=== PATIENT | female | born 1995 | race Caucasian/White ===

== ENCOUNTER 2016-07-11 21:07 | Emergency (ER) | payer OTHER ==
[~2016-07-11] VITALS: Ht 165.1 cm; Wt 65.0 kg
[2016-07-11 21:09] VITALS: BP 126/88; PULSE 122; RESP 20; TEMP 98; O2SAT 96
[2016-07-12] MEDS ORDERED: SODIUM CHLOR 0.9% 1000 ML INJ 1,000 ML IV ONE (00:02)
[2016-07-12] MEDS ORDERED: PROCHLORPERAZINE INJ 10 MG/2 ML VIAL IVP ONE (00:15)
[2016-07-12] MEDS ORDERED: SODIUM CHLORIDE 0.9% FLUSH 10 ML FLUSH IVF PRN (00:15)
[2016-07-12] MEDS ORDERED: diphenhydrAMINE HCL 50 MG/ML VIAL IVP ONE (00:15)
[2016-07-12] MEDS ORDERED: ACETAMINOPHEN 325 MG TAB PO ONE (00:15)
--- NOTE | 2016-07-12 01:14 | PD ---
HPI Chief Complaint: Headache Time Seen by Provider: 23:40 Travel History International Travel<30 days: No Contact w/Intl Traveler<30days: No Traveled to known affect area: No History of Present Illness HPI The patient's 21 years old. She has had a bifrontal headache since this morning. It is gradually worsening. She saw an urgent care clinic and received IM Toradol. Pain did not improve and so she came here. She reports a history of migraines. This is the worst migraine she has had. She also reports neck soreness. She's had no fever. She reports nausea and vomiting. She denies drugs alcohol and tobacco. Patient lives alone. She is a student at [employer]. [facility] Past Medical History ADHD: Yes Anxiety: Yes Depression: Yes Thyroid Disease: Yes (HASIMOTOS ) ?: Not LMP: 06/19/2016 Past Surgical History Other Surgery: Yes (UMBILICAL HERNIA, ) Social History Alcohol Use: No Tobacco Use: No Substance Use: No Allergies-Medications (Allergen,Severity, Reaction): Coded Allergies: Imitrex (Verified Allergy, Severe, Anaphylaxis, 07/11/16) Keflex (Verified Allergy, Intermediate, 07/11/16) buring mouth and throat and increased thirst Reported Meds & Prescriptions Reported Meds & Active Scripts Active Phenergan (Promethazine HCl) 25 Mg Tab 25 Mg PO Q6H PRN Review of Systems Except as stated in HPI: all other systems reviewed are Neg General / Constitutional: No: Fever Neurologic: Positive: Headache Physical Exam Narrative GENERAL: 21 Female pleasant well-nourished well-developed SKIN: Warm and dry. HEAD: Atraumatic. Normocephalic. EYES: Pupils equal and round. No scleral icterus. No injection or drainage. Extraocular muscles intact. Gaze conjugate. ENT: No nasal bleeding or discharge. Mucous membranes pink and moist. NECK: Trachea midline. No JVD. Supple. Range of motion is normal. CARDIOVASCULAR: Regular rate and rhythm. RESPIRATORY: No accessory muscle use. Clear to auscultation. Breath sounds equal bilaterally. GASTROINTESTINAL: Abdomen soft, non-tender, nondistended. Hepatic and splenic margins not palpable. MUSCULOSKELETAL: Extremities without clubbing, cyanosis, or edema. No obvious deformities. NEUROLOGICAL: Awake and alert. No obvious cranial nerve deficits. Motor grossly within normal limits. Five out of 5 muscle strength in the arms and legs. Normal speech. PSYCHIATRIC: Appropriate mood and affect; insight and judgment normal. Data Data Last Documented VS Vital Signs Date Time Temp Pulse Resp B/P Pulse Ox O2 Delivery O2 Flow Rate FiO2 07/12/16 01:33 99 07/11/16 21:09 98.0 122 20 126/88 VS reviewed Orders Ecg Monitoring (07/12/16 00:02) Iv Access Insert/Monitor (07/12/16 00:02) Oximetry (07/12/16 00:02) Sodium Chloride 0.9% Flush (Ns Flush) (07/12/16 00:15) Acetaminophen (Tylenol) (07/12/16 00:15) Prochlorperazine Inj (Compazine Inj) (07/12/16 00:15) Diphenhydramine Inj (Benadryl Inj) (07/12/16 00:15) Sodium Chlor 0.9% 1000 Ml Inj (Ns 1000 M (07/12/16 00:02) MDM Medical Decision Making Medical Screen Exam Complete: Yes Emergency Medical Condition: Yes Differential Diagnosis Migraine, SAH, aneurysm, meningitis, SCT, mass Narrative Course Patient reports resolution of headache and just prior to departure. Compazine benadryl tylenol 1L NS. She reports feeling much better. The neck pain is quite concerning however I do not believe the patient has meningitis. She had a normal range of motion of her neck and had laid in various positions comfortably during her ER stay. She had no fever and repeat pulse 80 prior to DC. REturn precautions discussed. Phenergan script. Diagnosis Primary Impression: Migraine Qualified Code: G43.919 - Intractable migraine without status migrainosus, unspecified migraine type Additional Instructions: You have a choice when it comes to health care, and we are glad that you chose [facility]. Hopefully, we have met your expectations on today's visit. You are welcome to return to [facility] at any time, as we are committed to meeting the health care needs of our community. Med/Other Pt SpecificInfo: Prescription(s) given Scripts Promethazine (Phenergan)25 Mg Tab25 Mg PO Q6H PRN (MIGRAINE HEADACHE) #10 TAB Ref 0 Prov:Pedro Luis Encarnacion MD 07/12/16 Disposition: 01 DISCHARGE HOME Condition: Stable Pedro Luis Encarnacion MD Jul 12, 2016 01:14
[2016-07-12] MEDS ORDERED: PROM25TA5 PO (01:27)
[2016-07-12 01:33] VITALS: O2SAT 99
== END 2016-07-12 02:10 | disposition home or self-care (01) ==
LOC: EDSEX → NEPE 21:07
DX: G43.919 Migraine, unspecified, intractable, without status migrainosus (principal)
CPT/HCPCS: 96374; 96375; 99283; J0780; J1200; J7030

== ENCOUNTER 2016-09-24 17:18 | Emergency (ER) | payer OTHER ==
[~2016-09-24] VITALS: Ht 165.1 cm; Wt 65.0 kg
[~2016-09-24 17:18] MED LIST: ADDE20 PO; ALPR.5 PO; BEYATAB PO; LEVO.05 PO; LEXA20TA PO; LINA145C PO; PROM25TA5 PO; ZOFR4TAB PO
[2016-09-24 17:19] VITALS: BP 137/73; PULSE 116; RESP 28; TEMP 98.3; O2SAT 96
--- NOTE | 2016-09-24 17:31 | PD ---
Physical Exam Time Seen by Provider: 17:27 Narrative 21yo F c/o migraine [facility] started last night. Hx of migraines. +N w/o vomiting. Also c/o only seeing black and white in Left eye. Saw chiropractic today. Symptoms worsened after taking methylprednisone and meloxicam she was given at [facility] yesterday. Patient seen in triage. VS reviewed. Awaiting bed placement. Data Data Last Documented VS Vital Signs Date Time Temp Pulse Resp B/P Pulse Ox O2 Delivery O2 Flow Rate FiO2 09/24/16 17:19 98.3 116 28 137/73 96 Room Air MDM Supervised Visit with ELIZA: Tameka Leon Sep 24, 2016 17:31
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
[2016-09-24] MEDS ORDERED: SODIUM CHLOR 0.9% 1000 ML INJ 1,000 ML IV ONE (18:15)
[2016-09-24] MEDS ORDERED: KETOROLAC TROMETHAMINE 30 MG/ML (IVP) VIAL IV PUSH ONE (18:15)
[2016-09-24] MEDS ORDERED: PROCHLORPERAZINE INJ 10 MG/2 ML VIAL IV PUSH ONE (18:15)
[2016-09-24 19:16] LABS: AUTOMATED NEUTROPHIL # 9.7 TH/MM3 (1.8-7.7); BASOPHIL % 0.4 % (0.0-2.0); EOSINOPHIL % 0.2 % (0.0-4.0); HEMO FLAGS DIFF FINAL; LYMPHOCYTE # 1.5 TH/MM3 (1.0-4.8); MEAN CELL VOLUME 85.8 FL (80.0-100.0); MEAN CORPUSCULAR HEMOGLOBIN 28.4 PG (27.0-34.0); MEAN CORPUSCULAR HGB CONC 33.1 % (32.0-36.0); MONO % 2.7 % (0.0-8.0); NEUT % 83.7 % (16.0-70.0); PLATELET COUNT 271 TH/MM3 (150-450); RED BLOOD COUNT 4.55 MIL/MM3 (4.00-5.30); RED CELL DISTRIBUTION WIDTH 12.8 % (11.6-17.2); WHITE BLOOD COUNT 11.6 TH/MM3 (4.0-11.0)
[2016-09-24 19:23] LABS: BACTERIA, URINE RARE /hpf; BLOOD, URINE NEG (NEG); COMMENT (UR) CULT NOT INDICATED; CULTURE IF INDICATED CULT NOT INDICATED; GLUCOSE,URINE NEG (NEG); KETONE, URINE NEG (NEG); NITRITE,URINE NEG (NEG); SQUAMOUS EPITHELIAL CELL URINE <1 /hpf (0-5); URINE COLOR LIGHT-YELLOW (YELLW/STRAW)
[2016-09-24 19:25] LABS: AMPHETAMINE, URINE NEG (NEG); BARBITURATES, URINE NEG (NEG); COCAINE, URINE NEG (NEG)
[2016-09-24 19:41] LABS: ANION GAP 6 MEQ/L (5-15); BICARBONATE 26.6 MEQ/L (21.0-32.0); BLOOD UREA NITROGEN 13 MG/DL (7-18); CHLORIDE 104 MEQ/L (98-107); GLOMERULAR FILTRATION RATE 102 ML/MIN (>89); POTASSIUM 3.9 MEQ/L (3.5-5.1); SODIUM (NA) 137 MEQ/L (136-145)
[2016-09-24 19:46] LABS: BETA HCG QUANT LESS THAN 1 MIU/ML (0-5)
== END 2016-09-24 19:58 | disposition home or self-care (01) ==
LOC: NEPD 17:18
DX: G43.401 Hemiplegic migraine, not intractable, with status migrainosus (principal); R00.0 Tachycardia, unspecified; F41.9 Anxiety disorder, unspecified; F32.9 Major depressive disorder, single episode, unspecified; E06.3 Autoimmune thyroiditis; Z79.899 Other long term (current) drug therapy
CPT/HCPCS: 80048; 80307; 81001; 84702; 85025; 96374; 96375; 99284; J0780; J1885; J7030

== ENCOUNTER 2017-04-30 21:39 | Inpatient (IN) | payer OTHER ==
[~2017-04-30] VITALS: Ht 167.6 cm; Wt 58.0 kg
[~2017-04-30 21:39] MED LIST changes: -ALPR.5 PO; -PROM25TA5 PO; -ZOFR4TAB PO
[2017-04-30 21:40] VITALS: BP 139/88; PULSE 88; RESP 16; TEMP 97.8; O2SAT 99
--- NOTE | 2017-04-30 21:52 | PD ---
HPI Chief Complaint: OD/ Ingestion Time Seen by Provider: 21:51 Travel History International Travel<30 days: No Contact w/Intl Traveler<30days: No Traveled to known affect area: No History of Present Illness HPI 22-year-old female came to the emergency room brought by her friend with history of overdosing on Xanax half an hour to 45 minutes prior to coming in. Patient says that she was feeling very anxious and that's why she took the pills. She denies doing it to kill herself. The patient and these are her pills. She took total of 12 each of 1 mg. No history of vomiting after the event. Patient is awake and answering questions appropriately although appears to be little bit groggy. Patient denies doing any alcohol or drugs with it. PFSH Past Medical History Narrative Medical List of her past medical, surgical, social and family history is reviewed from the nursing note. ADHD: Yes Anxiety: Yes Depression: Yes Diabetes: No Thyroid Disease: Yes (HASIMOTOS ) ?: Not Past Surgical History Other Surgery: Yes (UMBILICAL HERNIA, ) Social History Alcohol Use: No Tobacco Use: No Substance Use: No Allergies-Medications (Allergen,Severity, Reaction): Coded Allergies: sumatriptan (Unverified Allergy, Severe, Anaphylaxis, 04/30/17) cephalexin (Unverified Allergy, Intermediate, 04/30/17) buring mouth and throat and increased thirst topiramate (Unverified Allergy, Intermediate, hives, 04/30/17) prochlorperazine (Verified Allergy, Unknown, TWITCHING, CRAWLING OUT OF SKIN, 04/30/17) Comments List of her allergies reviewed from the nursing note. Reported Meds & Prescriptions Reported Meds & Active Scripts Active Adderall (Amphetamine-Dextroamphetamine) 20 Mg Tab 20 Mg PO DAILY PRN Avoid late evening doses. Space doses at least 4 to 6 hours if more than once/day dosing. Beyaz (Drospirenone-Ethinyl Estradiol-Levomefolate) 3-0.02-0.451 Mg Tab 1 Tab PO DAILY Synthroid (Levothyroxine Sodium) 50 Mcg Tab 50 Mcg PO DAILY Reported Maxalt (Rizatriptan Benzoate) 5 Mg Tab 1 Tab PO Q4HR PRN Zofran (Ondansetron HCl) 8 Mg Tab 8 Mg PO TID PRN Cymbalta (Duloxetine HCl) 30 Mg Capdr 30 Mg PO DAILY Narrative Medication List of her home medications reviewed from the nursing note. Review of Systems Except as stated in HPI: all other systems reviewed are Neg Physical Exam Narrative GENERAL: Awake, alert, no obvious distress SKIN: Focused skin assessment warm/dry. HEAD: Atraumatic. Normocephalic. EYES: Pupils equal and round. No scleral icterus. No injection or drainage. ENT: No nasal bleeding or discharge. Mucous membranes pink and moist. NECK: Trachea midline. No JVD. CARDIOVASCULAR: Regular rate and rhythm. No murmur appreciated. RESPIRATORY: No accessory muscle use. Clear to auscultation. Breath sounds equal bilaterally. GASTROINTESTINAL: Abdomen soft, non-tender, nondistended. Hepatic and splenic margins not palpable. MUSCULOSKELETAL: No obvious deformities. No clubbing. No cyanosis. No edema. NEUROLOGICAL: Awake and alert. No obvious cranial nerve deficits. Motor grossly within normal limits. Normal speech. PSYCHIATRIC: Appropriate mood and affect; insight and judgment normal. Data Data Last Documented VS Vital Signs Date Time Temp Pulse Resp B/P (MAP) Pulse Ox O2 Delivery O2 Flow Rate FiO2 05/01/17 06:24 98.6 70 16 102/56 (71) 98 Room Air Orders Orders Complete Blood Count With Diff (04/30/17 21:54) Comprehensive Metabolic Panel (04/30/17 21:54) Thyroid Stimulating Hormone (04/30/17 21:54) Electrocardiogram (04/30/17 21:54) Beta Hcg (Quant/Titer) (04/30/17 21:54) Psych Screen (04/30/17 21:54) Drug Screen, Random Urine (04/30/17 21:54) Alcohol (Ethanol) (04/30/17 21:54) Call Poison Control (04/30/17 21:54) Sodium Chlor 0.9% 1000 Ml Inj (Ns 1000 M (04/30/17 22:00) Ed Urine Pregnancytest Poc (05/01/17 00:21) Salicylates (Aspirin) (05/01/17 00:21) Tylenol (Acetaminophen) (05/01/17 00:21) Diet Regular Basic (05/01/17 Breakfast) Admit To Inpatient Psych (05/01/17 ) Code Status (05/01/17 09:36) Vital Signs (Adult) [id number] (05/01/17 09:36) Activity Oob Ad Zoe (05/01/17 09:36) Level Of Observation (Psych) (05/01/17 09:36) Lorazepam (Ativan) (05/01/17 09:45) Lorazepam Inj (Ativan Inj) (05/01/17 09:45) Lorazepam (Ativan) (05/01/17 09:45) Lorazepam Inj (Ativan Inj) (05/01/17 09:45) Acetaminophen (Tylenol) (05/01/17 09:45) Magnesium Hydroxide Liq (Milk Of Magnesi (05/01/17 09:45) Al-Mag Hy-Si 40-40-4 Mg/Ml Liq (Mag-Al P (05/01/17 09:45) Nicotine 21 Mg Patch.24 Hr (Habitrol 21 (05/02/17 09:00) Trazodone (Desyrel) (05/01/17 09:45) Basic Metabolic Panel (Bmp) (05/02/17 06:00) Thyroid Stimulating Hormone (05/02/17 06:00) Lipid Profile (05/02/17 06:00) Hemoglobin (Hgb) A1c (05/02/17 06:00) Consult Hospitalist (05/01/17 ) Remove Old Patch (05/02/17 09:00) Labs Laboratory Tests Test 04/30/17 22:40 04/30/17 22:51 Urine Opiates Screen NEG Urine Barbiturates Screen NEG Urine Amphetamines Screen NEG Urine Benzodiazepines Screen POS Urine Cocaine Screen NEG Urine Cannabinoids Screen NEG White Blood Count 7.6 TH/MM3 Red Blood Count 4.34 MIL/MM3 Hemoglobin 12.7 GM/DL Hematocrit 37.1 % Mean Corpuscular Volume 85.5 FL Mean Corpuscular Hemoglobin 29.3 PG Mean Corpuscular Hemoglobin Concent 34.3 % Red Cell Distribution Width 12.4 % Platelet Count 221 TH/MM3 Mean Platelet Volume 8.6 FL Neutrophils (%) (Auto) 56.1 % Lymphocytes (%) (Auto) 35.3 % Monocytes (%) (Auto) 7.3 % Eosinophils (%) (Auto) 0.5 % Basophils (%) (Auto) 0.8 % Neutrophils # (Auto) 4.3 TH/MM3 Lymphocytes # (Auto) 2.7 TH/MM3 Monocytes # (Auto) 0.6 TH/MM3 Eosinophils # (Auto) 0.0 TH/MM3 Basophils # (Auto) 0.1 TH/MM3 CBC Comment DIFF FINAL Differential Comment Blood Urea Nitrogen 9 MG/DL Creatinine 0.78 MG/DL Random Glucose 88 MG/DL Total Protein 7.1 GM/DL Albumin 3.6 GM/DL Calcium Level 9.1 MG/DL Alkaline Phosphatase 40 U/L Aspartate Amino Transf (AST/SGOT) 13 U/L Alanine Aminotransferase (ALT/SGPT) 8 U/L Total Bilirubin 0.6 MG/DL Sodium Level 138 MEQ/L Potassium Level 3.5 MEQ/L Chloride Level 102 MEQ/L Carbon Dioxide Level 28.6 MEQ/L Anion Gap 7 MEQ/L Estimat Glomerular Filtration Rate 91 ML/MIN Thyroid Stimulating Hormone 3rd Gen 2.640 uIU/ML Human Chorionic Gonadotropin, Quant LESS THAN 1 MIU/ML Salicylates Level LESS THAN 1.7 MG/DL Acetaminophen Level LESS THAN 2.0 MCG/ML Ethyl Alcohol Level LESS THAN 3 MG/DL MDM Medical Decision Making Medical Screen Exam Complete: Yes Emergency Medical Condition: Yes Medical Record Reviewed: Yes Interpretation(s) Twelve-lead EKG was reviewed by me. Normal sinus rhythm, normal axis, nonspecific ST-T wave changes. Heart rate of 63 bpm. Differential Diagnosis Intentional overdose, unintentional overdose, substance abuse Narrative Course 12:50 AM blood test results of back and urine drug screen is positive for benzo. Poison control was called and they recommend observation. Patient eventually once medically cleared would require psych screen. 1:03 AM her friends were in the room are currently leaving but wanted to let me know that there really concerned about her. She has done something like this in the past and it's over a breakup with her boyfriend. In their opinion this is intentional overdose in an attempt to hurt herself. Based on this information I will [place] act the patient. 1:47 AM patient is currently awake and crying. I have medically cleared her as per poison control. She would require psych screen. Procedures EKG Prior to Arrival: No Diagnosis Primary Impression: Benzodiazepine overdose Qualified Codes: T42.4X2A - Poisoning by benzodiazepines, intentional self- harm, initial encounter Janet Silva MD Apr 30, 2017 21:52
[2017-04-30] MEDS ORDERED: SODIUM CHLOR 0.9% 1000 ML INJ 1,000 ML IV ONE (22:00)
[2017-04-30 22:45] VITALS: BP 115/78; PULSE 78; RESP 14; O2SAT 100
[2017-04-30 23:00] VITALS: BP 114/78; PULSE 76; RESP 15; O2SAT 100
[2017-04-30 23:45] LABS: AUTOMATED NEUTROPHIL # 4.3 TH/MM3 (1.8-7.7); BASOPHIL # 0.1 TH/MM3 (0-0.2); BASOPHIL % 0.8 % (0.0-2.0); EOSINOPHIL % 0.5 % (0.0-4.0); HEMATOCRIT 37.1 % (35.0-46.0); HEMOGLOBIN 12.7 GM/DL (11.6-15.3); LYMPH % 35.3 % (9.0-44.0); LYMPHOCYTE # 2.7 TH/MM3 (1.0-4.8); MEAN CELL VOLUME 85.5 FL (80.0-100.0); MEAN CORPUSCULAR HEMOGLOBIN 29.3 PG (27.0-34.0); MEAN CORPUSCULAR HGB CONC 34.3 % (32.0-36.0); MEAN PLATELET VOLUME 8.6 FL (7.0-11.0); MONO % 7.3 % (0.0-8.0); MONOCYTE # 0.6 TH/MM3 (0-0.9); NEUT % 56.1 % (16.0-70.0); PLATELET COUNT 221 TH/MM3 (150-450); RED BLOOD COUNT 4.34 MIL/MM3 (4.00-5.30); RED CELL DISTRIBUTION WIDTH 12.4 % (11.6-17.2); WHITE BLOOD COUNT 7.6 TH/MM3 (4.0-11.0)
[2017-04-30 23:56] LABS: ALBUMIN 3.6 GM/DL (3.4-5.0); AST (GOT) 13 U/L (15-37); BICARBONATE 28.6 MEQ/L (21.0-32.0); BLOOD UREA NITROGEN 9 MG/DL (7-18); CALCIUM 9.1 MG/DL (8.5-10.1); CHLORIDE 102 MEQ/L (98-107); CREATININE 0.78 MG/DL (0.50-1.00); GLOMERULAR FILTRATION RATE 91 ML/MIN (>89); GLUCOSE,RANDOM 88 MG/DL (74-106); SODIUM (NA) 138 MEQ/L (136-145)
[2017-04-30 23:57] LABS: ALT (GPT) 8 U/L (10-53)
[2017-05-01] VITALS (7 sets, daily range): BP systolic 102–125; BP diastolic 56–86; PULSE 64–95; RESP 14–18; TEMP 98–100.1; O2SAT 95–100
[2017-05-01 00:07] LABS: ALKALINE PHOSPHATASE 40 U/L (45-117); TOTAL BILIRUBIN ADULT 0.6 MG/DL (0.2-1.0); TOTAL PROTEIN 7.1 GM/DL (6.4-8.2)
[2017-05-01] MEDS ORDERED: CYMB30CA PO (00:17)
[2017-05-01] MEDS ORDERED: ALPR.5 PO (03:52)
[2017-05-01] MEDS ORDERED: ZOFR8TAB PO (03:52)
[2017-05-01] MEDS ORDERED: MAXA5TAB2 PO (03:55)
[2017-05-01] MEDS ORDERED: MAGNESIUM HYDROXIDE SUSP 30 ML CUP PO PRN (09:45)
[2017-05-01] MEDS ORDERED: ALUMINUM/MAGNESIUM/SIMETH 30 ML CUP PO PRN (09:45)
[2017-05-01] MEDS ORDERED: LORazepam 2 MG/ML VIAL IM PRN ×2 (09:45)
[2017-05-01] MEDS ORDERED: LORazepam 0.5 MG TAB PO PRN (09:45)
[2017-05-01] MEDS ORDERED: traZODone HCL 50 MG TAB PO PRN (09:45)
[2017-05-01] MEDS ORDERED: LORazepam 1 MG TAB PO PRN (09:45)
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
--- NOTE | 2017-05-01 17:04 | EKG ---
Date Performed: 04/30/2017 Time Performed: 22:38:23 PTAGE: 22 years EKG: Sinus rhythm NORMAL ECG NO PREVIOUS TRACING DOCTOR: Gumaro Encarnacion Interpretating Date/Time 05/01/2017 17:03:48
[2017-05-01] MEDS: LEVOTHYROXINE SODIUM 50 MCG TAB PO SCH (19:33)
[2017-05-01] MEDS ORDERED: BEYAZ PO SCH (20:22)
[2017-05-01] MEDS: BEYAZ PO SCH (22:11)
[2017-05-02] MEDS: ACETAMINOPHEN 325 MG TAB PO PRN ×2 (03:40→08:04)
[2017-05-02] MEDS ORDERED: ONDANSETRON ODT 4 MG TAB PO ONE (04:45)
[2017-05-02] MEDS: LEVOTHYROXINE SODIUM 50 MCG TAB PO SCH (06:00)
[2017-05-02 06:14] VITALS: BP 108/70; PULSE 60; RESP 16; TEMP 98.1; O2SAT 98
[2017-05-02] MEDS: BEYAZ PO SCH (09:00)
[2017-05-02] MEDS ORDERED: REMOVE OLD PATCH T-DERMAL SCH (09:00)
[2017-05-02] MEDS ORDERED: NICOTINE 21 MG/24 HR PATCH T-DERMAL SCH (09:00)
[2017-05-02] MEDS ORDERED: hydrOXYzine HCL 50 MG TAB PO PRN (09:15)
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
--- NOTE | 2017-05-02 09:48 | HHI.DS ---
Psychiatry Discharge Summary Inpatient Psychiatric care?: Yes Advance Directive: No Reason Not Provided: Due to Patient Condition Mental Health AdvanceDirective: No Health Care Proxy: No Admission Admission Date May 01, 2017 at 09:41 Admission Diagnosis: (1) Adjustment disorder with mixed disturbance of emotions and conduct ICD Code: F43.25 - Adjustment disorder with mixed disturbance of emotions and conduct (2) Benzodiazepine abuse ICD Code: F13.10 - Sedative, hypnotic or anxiolytic abuse, uncomplicated Brief History Patient is a 22-year-old white female was initially brought to [facility] emergency department by her friends with a history of overdose benzodiazepines and Cymbalta. Patient is Duval acted in the emergency department by Dr. Silva dated May 01, 2017 at 1:05 AM that documented reviewed stating intentional overdose major depression. Patient seen screened in the ED urine toxicology positive for benzodiazepines. Prior to my seeing patient this morning I met with patient's mother father and older sister along with nurse Ramirez and counselor Kaylie. The family was somewhat confused and distraught over the admission process, Duval act process. And admission to psychiatry. I did discuss this in detail with the family. We also discussed some past history related to their daughter/sister. Evidence both with the daughter. Patient is a 22-year-old white female she was calm pleasant cooperative with me present throughout the session was counselor Kaylie and nurse Yancy. He shouldn 't is a student at [employer] graduating in nursing. It appears she was dating a chiropractic medical student, they were sexually active with protection, it appears she discovered that he was having an affair with another student. It appears he also was treating patient and the other woman chiropractic. In any event patient became quite distraught to the point where she scratched her forearm this with the scissors type object more an attempt to relieve pressure then with any suicidal intent. She also took a few extra Xanax to calm herself , patient denied any suicidal ideation intent or plan at any time during this. She denied any alcohol or drug use related to this. She denied any voices or visions. Patient has a fairly long history of anxiety and depression. Does see Dr. Jauregui with the patient reports as prescribing Xanax and Cymbalta for her. However of interest in the med reconciliation Xanax is not mentioned. Though Adderall is mentioned. Patient acknowledges prior somewhat chaotic relationship with men. Patient also has multiple medical issues including Mary's thyroiditis gastric ulcer, migraines, ovarian cysts, and endometriosis. At the present time patient denies suicidality homicidality voices or visions. Is able contracted to no harm. Patient did state she has seen counselors in the past but none for significant period of time. At this time I feel patient does not meet Duval criteria will lift Duval act. We'll allow patient to be discharged to her family. She will continue to follow-up with Dr. Jauregui. Would suggest that she asked him to make referral to a competent psychotherapist. And discussed with Dr. Jauregui alternatives to benzodiazepines and psychostimulants. After my session with the patient to call patient's mother Alissa at [phone] and discussed the case with her again. She agrees with strongly referral to counseling, also feels safe with her daughter coming home with her. I also shared with mother that if things seem to be deteriorating or causing any type of stress she may bring her daughter back for further screaming by our psychiatric screeners in the ED Tobacco Use In Past 30 Days: No Tobacco Past 30 Days Alcohol Use: Never Hospital Course Please see above note dictated under brief history. Patient does not meet Duval criteria for involuntary psychiatric hospitalization. Lift Duval act. Patient to be discharge to her family. Patient continues to deny any suicidal homicidal ideation intent or plan. She does have prominent psychiatrist in the community, Dr. Jauregui, she may follow-up with him. Also suggest getting referral to a therapist. Results Blood Pressure 108 / 70 Vital Signs Date Time Temp Pulse Resp B/P (MAP) Pulse Ox O2 Delivery O2 Flow Rate FiO2 05/02/17 06:14 98.1 60 16 108/70 (83) 98 05/01/17 06:24 Room Air Laboratory Tests Test 04/30/17 22:40 04/30/17 22:51 Urine Benzodiazepines Screen POS (NEG) Alkaline Phosphatase 40 U/L (45-117) Aspartate Amino Transf (AST/SGOT) 13 U/L (15-37) Alanine Aminotransferase (ALT/SGPT) 8 U/L (10-53) Salicylates Level LESS THAN 1.7 MG/DL Acetaminophen Level LESS THAN 2.0 MCG/ML Summary of Procedures None done Pending results at discharge: No Medications # of Antipsychotic meds at D/C: 0 Approp Antipsych med options 1 - Minimum of three failed multiple trials of monotherapy. 2 - Documented plan to taper to monotherapy due to previous use of multiple meds OR cross-taper in progress at D/C. 3 - Documentation of augmentation of Clozapine. 4 - Justification other than those listed in allowable values 1-3, document here : Discharge Discharge Date: May 02, 2017 Discharge Diagnosis: (1) Adjustment disorder with mixed disturbance of emotions and conduct Diagnosis: Principal ICD Code: F43.25 - Adjustment disorder with mixed disturbance of emotions and conduct (2) Benzodiazepine abuse Diagnosis: Secondary ICD Code: F13.10 - Sedative, hypnotic or anxiolytic abuse, uncomplicated Pt Condition on Discharge: Stable Discharge Disposition: Discharge Home Discharge Instructions Diet Instructions: As Tolerated, No Restrictions Activities you can perform: Regular-No Restrictions Scheduled Appointment: Private Psychiatrist (Dr. Jauregui this week) Discharge Time > 30 minutes Mental Status Examination Appearance: Appropriate Consciousness: Alert Orientation: x4 Motor Activity: Normal gait Speech: Unremarkable Language: Adequate Fund of Knowledge: Adequate Attention and Concentration: Adequate Memory: Unremarkable Mood: Other (euthymic to mildly dysphoric) Affect: Other (good range and intensity) Thought Process & Associations: Intact, Logical Thought Content: Appropriate Hallucination Type: Auditory Delusion Type: None Suicidal Ideation: No Suicidal Plan: No Suicidal Intention: No Homicidal Ideation: No Homicidal Plan: No Homicidal Intention: No Insight: Adequate Judgment: Impulsive Discharge/Advance Care Plan Health Problems: (1) Adjustment disorder with mixed disturbance of emotions and conduct (2) Benzodiazepine abuse Goals to promote your health * To prevent worsening of your condition and complications * To maintain your health at the optimal level Directions to meet your goals Take your medications as prescribed Follow your dietary instruction Follow activity as directed Keep your appointments as scheduled Take your immunizations and boosters as scheduled If your symptoms worsen call your PCP, if no PCP go to Urgent Care Center or Emergency Room For 11/10 questions related to your inpatient stay or results of tests pending at discharge, please contact Dr. Hemanth Tidwell at Smoking is Dangerous to Your Health. Avoid second hand smoking Hemanth Tidwell MD May 02, 2017 09:48
[2017-05-02 10:39] LABS: BICARBONATE 26.6 MEQ/L (21.0-32.0); BLOOD UREA NITROGEN 10 MG/DL (7-18); CALCIUM 8.8 MG/DL (8.5-10.1); CHLORIDE 104 MEQ/L (98-107); GLOMERULAR FILTRATION RATE 103 ML/MIN (>89); GLUCOSE,RANDOM 104 MG/DL (74-106); SODIUM (NA) 137 MEQ/L (136-145)
[2017-05-02 10:40] LABS: CHOLESTEROL 170 MG/DL (120-200)
[2017-05-02 10:50] LABS: CHOLESTEROL/ HDL RATIO 3.15 RATIO; HDL CHOLESTEROL 53.9 MG/DL (40.0-60.0); LDL CHOLESTEROL 96 MG/DL (0-99); TRIGLYCERIDES 103 MG/DL (42-150)
[2017-05-02 16:51] LABS: HEMOGLOBIN A1C 5.4 % (4.3-6.0)
== END 2017-05-02 11:05 | disposition home or self-care (01) | DRG 882 ==
LOC: NEPE 21:39 → NEDA 05-01 09:41 → H260 05-01 10:35
PROVIDERS: ADMIT Psychiatry & Neurology Psychiatry; ATTEND Psychiatry & Neurology Psychiatry
DX: F43.25 Adjustment disorder with mixed disturbance of emotions and conduct (principal); K25.9 Gastric ulcer, unspecified as acute or chronic, without hemorrhage or perforation; F32.9 Major depressive disorder, single episode, unspecified; F13.10 Sedative, hypnotic or anxiolytic abuse, uncomplicated; F41.0 Panic disorder [episodic paroxysmal anxiety]; E06.3 Autoimmune thyroiditis; G43.909 Migraine, unspecified, not intractable, without status migrainosus; N83.209 Unspecified ovarian cyst, unspecified side; F90.9 Attention-deficit hyperactivity disorder, unspecified type; K58.0 Irritable bowel syndrome with diarrhea; T42.4X2A Poisoning by benzodiazepines, intentional self-harm, initial encounter
CPT/HCPCS: 80048; 80053; 80061; 80307; 83036; 84443; 84702; 84703; 85025; 93005; J7030